=== PATIENT | female | born 2000 | race African-American/Black ===

== ENCOUNTER 2025-09-06 08:08 | Emergency (ER) | payer MEDICAID, SELFPAY ==
[2025-09-06 08:12] VITALS: BP 130/93; PULSE 114; RESP 18; TEMP 36.6; O2SAT 98; BMI 39.4
--- NOTE | 2025-09-06 08:25 | ED.GENADULT ---
HPI - General Adult General Chief complaint: Wound/Laceration Stated complaint: Back Pain Time Seen by Provider: 09/06/25 08:22 Source: patient, RN notes reviewed and old records reviewed Mode of arrival: ambulatory Limitations: no limitations History of Present Illness ED Provider: Latisha [facility] narrative: Patient is a 25 year old female presenting to the ED after she noticed pain at the tailbone area approximately 3?4?days ago. ? Two days after initial discomfort, bumps developed; patient recalls onset night. ? Denies fevers, chills, or body aches. ? Denies drainage from the lesion. ? Lesion is painful; worse on the right side of the tailbone. ? No prior similar episodes reported. MD complaint: abscess Onset (ago): day(s) Related Data Previous Rx's ?Medication ?Instructions ?Recorded amoxicillin 875 mg-potassium 1 tab PO BID #14 tabs 09/06/25 clavulanate 125 mg tablet Allergies Allergy/AdvReac Type Severity Reaction Status Date / Time acetaminophen (From Tylenol) Allergy Unknown Verified 09/06/25 08:16 Review of Systems Review of Systems: as per hpi Yes all other systems are reviewed and are negative Constitutional: Constitutional: Reports as per HPI [facility] Social History Social History Advance Directives: No Advance Directives Information Provided: Yes Do you have a plan to hurt others: No Plan Physical Exam ED Vital Signs: Vital Signs - 24 hr 09/06/25 08:12 Temperature 98 F Pulse Rate 114 H Respiratory Rate 18 Blood Pressure 130/93 H Pulse Oximetry 98 BMI result Body Mass Index 39.4 Vital signs have been reviewed and appear to be correct. Blood pressure normal. Heart rate mildly tachycardic. Respiratory rate normal. Temperature normal. Oxygen saturation normal. Const General: cooperative, healthy appearing and no acute distress Orientation/consciousness: oriented to person, oriented to place, oriented to time and patient oriented x3 Limitations: no limitations HENMT Head: Yes normocephalic and Yes atraumatic Ears: external ears normal General nose exam: Normal external nose present Face and sinus: Yes face symmetric Mouth: oropharynx normal and moist mucous membranes Throat: Yes uvula midline Eyes Pupils: Equal, round and reactive pupils present Neck Neck: Yes normal visual inspection and Yes supple Resp Effort & Inspection: normal respiratory effort and able to speak in complete sentences Auscultation: clear to auscultation bilaterally Cardio Rate: regular rate Rhythm: regular rhythm Heart sounds: S1 normal heart sound present and S2 normal heart sound present GI Palpation (GI): Soft to palpation and nontender Auscultation: normoactive bowel sounds General: Yes no CVA tenderness Back/Spine/Pelvis Back: no CVA tenderness Skin General skin exam: elasticity normal and turgor normal Neuro General: oriented to person, oriented to place, oriented to time, patient oriented x3, moves all extremities, no focal motor deficits and CN's II-XI intact bilaterally Cranial nerves: Yes Equal, round and reactive pupils present Cognition (Neuro): normal cognition Extrem General: Yes full ROM, Yes no pedal edema and Yes no calf tenderness Psych Mental Status: mental status grossly normal Affect: normal affect Thought process: Normal thought process present Medications Administered Discontinued Medications Generic Name Dose Route Start Last Admin Trade Name Freq PRN Reason Stop Dose Admin Lidocaine HCl 5 ml 09/06/25 08:35 09/06/25 08:45 Lidocaine Hcl 1 % Mpf 5 Ml Vial INFILTRATI 09/06/25 08:36 5 ml ONCE ONE Administration Procedures Abscess I/D Site: other (pilonidal) Side (if applicable): right Local Anesthetic: lidocaine 1% Amount of anesthesia used (mL): 5 Technique: incised with blade Amount of fluid expressed (mL): 20 Sent for culture/gram staining?: No Irrigation: No Packing used?: none Medical Decision Making Medical Decision Making MDM Narrative: Patient is a 25 year old female presenting to the ED after she noticed pain at the tailbone area approximately 3?4?days ago. On exam patient is awake, A+Ox3, mildly tachycardic, VS otherwise WNL, afebrile, normal neurological exam without focal deficits, physical exam findings as above. Given reported symptoms and physical exam findings, initial differential includes but is not limited to pilonidal cyst versus abscess, cellulitis. Plan: Local anesthesia with lidocaine for pain control. Incision and drainage of the lesion to evacuate purulent material. See procedure note. Patient provided verbal consent, tolerated procedure well, no complications. Initiate oral antibiotics; prescription sent to patient?s preferred pharmacy. Warm sitz baths (10?15?minutes, multiple times daily); may add a small amount of salt to water. Provide contact information for General Surgery for follow-up regarding possible underlying cyst and risk of recurrence. Return precautions discussed. Patient verbalized understanding of and agreement with plan. Differential Diagnosis Differential Diagnoses: The differential diagnosis associated with the presentation includes as per [facility] Admission/Observation Consideration of admission/observation: Escalation of care including admission/observation considered Patient would have been admitted to the hospital and transferred to appropriate facility had their clinical presentation warranted hospital admission. External Record Review External record reviewed: Inpatient record, Office record and Outpatient record Prescription Management I considered prescription management with: Antibiotic Discharge Plan Discharge Clinical Impression: Pilonidal abscess of cleft Patient Disposition: Home, Self-Care Instructions: Pilonidal Cyst (ED), Abscess (ED), Sitz Bath (DC) Additional Instructions: You were evaluated in the ER for an abscess. Please keep the area surrounding the abscess clean and dry. You were given a prescription for antibiotics, please take the antibiotics as directed for the full course of the medication. You should perform a skin check of the area daily. You can use Tylenol or ibuprofen per package directions as needed for pain. If necessary, you can alternate these medications so that you take one medication every 3 hours. For instance, at noon take ibuprofen, then at 3:00 p.m. take Tylenol, then at 6:00 p.m. take ibuprofen. We also recommend that you perform Sitz baths at least once per day. Please schedule an appointment with your primary care physician as soon as possible for follow-up. Return to the emergency department if you experience fevers greater than 100.4? F, increased in area of redness or swelling, increasing amount of discharge from the area, increased tenderness around the area, or any other concerning symptoms. Prescriptions: New amoxicillin-pot clavulanate 875-125 mg tablet 1 tab PO BID Qty: 14 0RF Referrals: [facility] [place] General Surgeons [Provider Group, General Surgery] Clinical Impression: Pilonidal abscess of cleft Print Language: American
[2025-09-06] MEDS: Lidocaine HCl 1 % MPF 5 ML VIAL INFILTRATI (08:45)
--- NOTE | 2025-09-06 09:43 | PC.NURSE ---
cyst drained/packed by provider. pt left ED w/o discharge paperwork. no discharge vitals obtained.
[2025-09-06 09:45] VITALS: BP 130/93; PULSE 114; RESP 18; TEMP 36.6; O2SAT 98
== END 2025-09-06 09:45 | disposition home or self-care (01) ==
PROVIDERS: Emergency Provider Emergency Medicine
DX: L05.01 Pilonidal cyst with abscess (principal); Z88.6 Allergy status to analgesic agent
CPT/HCPCS: 10060; 99284; J2003

== ENCOUNTER 2025-09-29 09:10 | Outpatient (AMB) | payer MEDICAID, SELFPAY ==
[2025-09-29 09:27] VITALS: BP 125/66; PULSE 77; BMI 39.6
--- NOTE | 2025-09-29 09:27 | A.OFFVIS_ITS ---
Vital Signs 09/29/25 09:27 Height 5 ft 5 in Weight 238 lb BMI 39.6 BP 125/66 Blood Pressure Location Rt radial Position Sitting Pulse 77 Intake Visit Reasons: Pilonidal abscess of tino cleft Intake Note: Patient seen at [facility] ED for abscess on tino cleft. Reports completed Augmentin course. Patient c/o: much improved w/ abx course. Denies drainage, oozing, pain. Boiler Out Required: No Accompanied by: Self / Same As Patient Allergies acetaminophen (From Tylenol) Allergy (Verified 09/29/25 09:33) Unknown HPI Comments Details: Patient recently had a first-time incidents of a pilonidal abscess. She went to emergency department where she was placed on antibiotic therapy. She reports the issue has since resolved and she was sent here for definitive follow-up. She denies ever having this issue before and reports this is completely new for her. She denies any history of trauma or instrumentation to the region. [facility] Social History (Updated 09/29/25 @ 09:33 by SERGIO Benjamin) Patient Tobacco Use Status: Never used Tobacco Review of Systems Const All systems reviewed & are unremarkable except as noted in HPI and below Physical Exam Vital Signs: Last Vital Signs Pulse 77 09/29/25 09:27 BP 125/66 09/29/25 09:27 BMI result Body Mass Index 39.6 Const General: cooperative, healthy appearing and comfortable Nutritional Appearance: obese morbidly obese Orientation/consciousness: oriented to person, oriented to place and oriented to time HEENT Head: Yes normal to inspection Ears: hearing grossly normal bilaterally General nose exam: Normal external nose present Face and sinus: Yes normal facial exam Eyes Pupils: Equal, round and reactive pupils present EOM: EOMs intact bilaterally Neck Neck: Yes normal visual inspection Chest Chest palpation & inspection: normal inspection of the chest Resp Effort & Inspection: normal respiratory effort Cardio Rate: regular rate Rhythm: regular rhythm GI Inspection: Yes normal to inspection Back/Spine/Pelvis Other: At the superior gluteal cleft there are about a half dozen dry chronic small pilonidal sinuses extending for 4 or 5 cm in length. None appreciated off of the midline. There is no erythema edema fluctuance or discharge. Neuro General: oriented to person, oriented to place and oriented to time Cranial nerves: Yes CN's II-XII intact bilaterally and Yes Equal, round and reactive pupils present Assessment & Plan Assessment & Plan (1) Pilonidal disease: Code(s): L05.91 - Pilonidal cyst without abscess Category: Medical Plan: I patient she had a sick presentation pilonidal disease. I reviewed options w ith her. I reviewed with her the nature of excisional the involved region and also reviewed with her the risks are involved with such an undertaking. She indicated that she understood. She told me that she did not want to do anything at this point in time. She told me that she understood and accepted the risks of possible abscess formation again. She did agree to come back and see us again in approximately 3 months for re-evaluation. She was encouraged to contact us should she have any questions or problems and she said she was happy with that plan. Medications: Discontinued amoxicillin-pot clavulanate 875-125 mg Discontinued Reason: Patient Completed Course 1 tab PO BID 14 tabs 0RF Coding Level of Care Code New Pt Level 3 (31278) Diagnoses Pilonidal disease L05.91 Time Spent (min) 30 Comment Patient visit record reviewed and coordination of care time
== END 2025-09-29 09:41 | disposition home or self-care (01) ==
LOC: HO.HGS 09:11
PROVIDERS: PCP Nurse Practitioner Family; Visit Provider Surgery
DX: L05.91 Pilonidal cyst without abscess (principal)
CPT/HCPCS: 99203

== ENCOUNTER → 2025-09-29 09:10 | Outpatient (BNVA) | payer MEDICAID, SELFPAY | PROVIDERS: PCP Nurse Practitioner Family; Visit Provider Surgery | DX: L05.91 Pilonidal cyst without abscess (principal) | CPT/HCPCS: 99202 ==